=== PATIENT | female | born 1960 | race Two or more races ===

== ENCOUNTER → 2017-07-20 | Outpatient (CLI) | payer MEDICAID ==
--- NOTE | 2017-07-20 08:27 | WOMENS IMAGING REPORT ---
EXAM DESCRIPTION: BILAT SCREENING MAMMO W/CAD COMPLETED DATE/TIME: 07/20/2017 7:40 am REASON FOR STUDY: SCREENING MAMMO Z12.31 ENCNTR SCREEN MAMMOGRAM FOR MALIGNANT NEOPLASM OF TERRANCE COMPARISON: None. TECHNIQUE: Standard craniocaudal and mediolateral oblique views of each breast recorded using digita l acquisition. LIMITATIONS: None. FINDINGS: No masses, calcifications or architectural distortion. No areas of suspicion. Read with the assistance of CAD. .[facility] - R2 Cenova Version 1.3 .[facility] - R2 Cenova Version 1.3 .[facility] - R2 Cenova Version 2.4 .[facility] - R2 Cenova Version 2.4 .[facility] - R2 [employer]chand[employer] Version 9.2 IMPRESSION: NORMAL MAMMOGRAM. BIRADS 1. BREAST DENSITY: b. There are scattered areas of fibroglandular density. BIRAD: 1 NEGATIVE RECOMMENDATION: ROUTINE SCREENING COMMENT: The patient has been notified of the results by letter per SA requirements. Additional no tification policies are in place for contacting patient with suspicious or incomplete findings. Quality ID #[id number]: The [employer] recommends an annual screening mammogram for women aged 40 years or over. This facility utilizes a reminder system to ensure that all patients receive reminder letters, and/or direct phone calls for appointments. This includes reminders for routine scr eening mammograms, diagnostic mammograms, or other Breast Imaging Interventions when appropriate. Th is patient will be placed in the appropriate reminder system. The [employer] (ACR) has developed recommendations for screening MRI of the breast s in certain patient populations, to be used in conjunction with mammography. Breast MRI surveillanc e may be appropriate for women with more than 20% lifetime risk of developing breast cancer as deter mined by genetic testing, significant family history of the disease, or history of mantle radiation f or Hodgkins Disease. ACR Practice Guidelines 2008. TECHNICAL DOCUMENTATION: FINDING NUMBER: (1) ASSESSMENT: (1) JOB ID: [id number] [employer]- All Rights Reserved
== END ==
LOC: WI 07:20
PROVIDERS: ATTEND Internal Medicine
DX: Z12.31 Encounter for screening mammogram for malignant neoplasm of breast (principal)
CPT/HCPCS: 77067; G0202

== ENCOUNTER 2018-04-14 17:17 | Inpatient (IN) | payer MEDICAID ==
--- NOTE | 2018-04-14 17:37 | ER Document Report ---
ED Medical Screen (RME) - General Chief Complaint: Skin Sore(s) Stated Complaint: SKIN SORE Time Seen by Provider: 04/14/18 17:24 Mode of Arrival: Ambulatory Information source: Patient Notes: 57 yr old female hx of MRSA presents with complaints of fever that started yesterday, pain and drainage that started today in the inguinal region I have greeted and performed a rapid initial assessment of this patient. A comprehensive ED assessment and evaluation of the patient, analysis of test results and completion of the medical decision making process will be conducted by additional ED providers. PHYSICAL EXAMINATION: GENERAL: Well-appearing, well-nourished and in no acute distress. HEAD: Atraumatic, normocephalic. EYES: Pupils equal round extraocular movements intact, conjunctiva are normal. ENT: Nares patent NECK: Normal range of motion LUNGS: No respiratory distress Musculoskeletal: Normal range of motion NEUROLOGICAL: Normal speech, normal gait. PSYCH: Normal mood, normal affect. SKIN: right inguinal erythema, drainage with blood noted TRAVEL OUTSIDE OF THE [place] IN LAST 30 DAYS: No - Related Data Allergies/Adverse Reactions: No Known Allergies Allergy (Verified 04/14/18 17:19) Past Medical History - Social History Chew tobacco use (# tins/day): No Frequency of alcohol use: Occasional Drug Abuse: None - Past Medical History Cardiac Medical History: Reports: Hx Hypertension Renal/ Medical History: Denies: Hx Peritoneal Dialysis Past Surgical History: Reports: Hx Hysterectomy Physical Exam - Vital signs Vitals: Temp Pulse Resp BP Pulse Ox 99.2 F 102 H 18 134/85 H 96 04/14/18 17:22 04/14/18 17:22 04/14/18 17:22 04/14/18 17:22 04/14/18 17:22 Course - Vital Signs Vital signs: Temp Pulse Resp BP Pulse Ox 99.2 F 102 H 18 134/85 H 96 04/14/18 17:22 04/14/18 17:22 04/14/18 17:22 04/14/18 17:22 04/14/18 17:22 Doctor's Discharge - Discharge Referrals: MERRY GORDON MD [Primary Care Provider] - Follow up as needed
[2018-04-14 18:02] LABS: ABSOLUTE BASOPHILS # (AUTO) 0.1 10^3/uL (0.0-0.2); ABSOLUTE EOSINOPHILS # (AUTO) 0.1 10^3/uL (0.0-0.6); ABSOLUTE LYMPHOCYTES (AUTO) 2.1 10^3/uL (0.5-4.7); ABSOLUTE MONOCYTES (AUTO) 1.1 10^3/uL (0.1-1.4); BASOPHILS % (AUTO) 0.7 % (0-2); EOSINOPHILS % (AUTO) 0.4 % (0-6); HEMATOCRIT 42.7 % (36.0-47.0); HEMOGLOBIN 14.3 g/dL (12.0-15.5); LYMPHOCYTES % (AUTO) 11.5 % (13-45); MEAN CORPUSCULAR HEMOGLOBIN 31.1 pg (27.0-33.4); MEAN CORPUSCULAR HGB CONC 33.5 g/dL (32.0-36.0); MEAN CORPUSCULAR VOLUME 93 fl (80-97); PLATELET COUNT 264 10^3/uL (150-450); RED CELL DISTRIBUTION WIDTH 13.7 % (11.5-14.0); SEGMENTED NEUTROPHILS % (AUTO) 81.4 % (42-78); TOTAL CELLS COUNTED % (AUTO) 100 %; WHITE BLOOD COUNT 18.5 10^3/uL (4.0-10.5)
[2018-04-14 18:22] LABS: ALANINE AMINOTRANSFERASE 45 U/L (9-52); ALBUMIN 3.4 g/dL (3.5-5.0); ALKALINE PHOSPHATASE 83 U/L (38-126); ANION GAP 9 (5-19); ASPARTATE AMINO TRANSFERASE 26 U/L (14-36); BILIRUBIN,DIRECT 0.3 mg/dL (0.0-0.4); BILIRUBIN,TOTAL 0.6 mg/dL (0.2-1.3); BLOOD UREA NITROGEN 18 mg/dL (7-20); CALCIUM 8.6 mg/dL (8.4-10.2); CARBON DIOXIDE 24 mmol/L (22-30); CHLORIDE 105 mmol/L (98-107); GLUCOSE 100 mg/dL (75-110); SODIUM 138.4 mmol/L (137-145); TOTAL PROTEIN 5.9 g/dL (6.3-8.2)
[2018-04-14] MEDS ORDERED: CEFTRIAXONE INJ 1000 MG VIAL IV ONE (19:44)
[2018-04-14] MEDS ORDERED: VANCOMYCIN HCL INJ 1000 MG VIAL IV ONE (19:44)
--- NOTE | 2018-04-14 19:46 | ER Document Report ---
ED General - General Chief Complaint: Skin Sore(s) Stated Complaint: SKIN SORE Time Seen by Provider: 04/14/18 17:24 Mode of Arrival: Ambulatory Notes: Patient is a 57 year old female with a past medical history of hypertension and recurrent MRSA infections who presents with 24 hours of a rapidly progressing area of erythema, induration and pain over her right lower abdomen and pannus region extending down onto her right hip. Patient states that the area started several days ago is what appeared to be an infected hair follicle on her right lower pannus region and became progressively worse over the last 24 hours. She notes that she has had some purulent drainage from the original area of possible hair follicle infection. She reports a fever at home up to 103F yesterday but no fever today. She also notes that she has body aches, chills and fatigue since onset of the rash. She had a similar event in the past that was treated as an outpatient with oral antibiotics although she is clear to state that she never developed a fever at that time that the area of erythema was much smaller. She has not seen her general doctor regarding today's concerns. The pain to the areas described as a burning, stinging, constant pain. Touching the area or moving worsens the pain. Nothing improves the pain. TRAVEL OUTSIDE OF THE [place] IN LAST 30 DAYS: No - Related Data Allergies/Adverse Reactions: No Known Allergies Allergy (Verified 04/14/18 17:19) Past Medical History - General Information source: Patient - Social History Smoking Status: Current Every Day Smoker Chew tobacco use (# tins/day): No Frequency of alcohol use: Occasional Drug Abuse: None Lives with: Spouse/Significant other Family History: Reviewed & Not Pertinent Patient has suicidal ideation: No Patient has homicidal ideation: No - Past Medical History Cardiac Medical History: Reports: Hx Hypertension Renal/ Medical History: Denies: Hx Peritoneal Dialysis Past Surgical History: Reports: Hx Hysterectomy Review of Systems - Review of Systems Notes: Constitutional: Positive for fever. HENT: Negative for sore throat. Eyes: Negative for visual changes. Cardiovascular: Negative for chest pain. Respiratory: Negative for shortness of breath. Gastrointestinal: Negative for abdominal pain, vomiting or diarrhea. Genitourinary: Negative for dysuria. Musculoskeletal: Negative for back pain. Skin: Positive for rash. Neurological: Negative for headaches, weakness or numbness. 10 point ROS negative except as marked above and in HPI. Physical Exam - Vital signs Vitals: Temp Pulse Resp BP Pulse Ox 99.2 F 102 H 18 134/85 H 96 04/14/18 17:22 04/14/18 17:22 04/14/18 17:22 04/14/18 17:22 04/14/18 17:22 Interpretation: Tachycardic Notes: PHYSICAL EXAMINATION: GENERAL: Well-appearing, well-nourished and in no acute distress. HEAD: Atraumatic, normocephalic. EYES: Pupils equal round and reactive to light, extraocular movements intact, sclera anicteric, conjunctiva are normal. ENT: nares patent, oropharynx clear without exudates. Moderately dry mucous membranes. NECK: Normal range of motion, supple without lymphadenopathy LUNGS: Breath sounds clear to auscultation bilaterally and equal. No wheezes rales or rhonchi. HEART: Regular rate and rhythm without murmurs ABDOMEN: Soft, nontender, normoactive bowel sounds. No guarding, no rebound. No masses appreciated. EXTREMITIES: Normal range of motion, no pitting or edema. No cyanosis. NEUROLOGICAL: No focal neurological deficits. Moves all extremities spontaneously and on command. PSYCH: Normal mood, normal affect. SKIN: Warm, Dry, normal turgor, there is an extensive area of erythema extending from the right pannus region toward the right hip and down to the more proximal region of the right thigh. There is a small amount of purulent drainage from a punctate lesion in the central area of the erythema without any significant induration or fluctuance to the area. Course - Re-evaluation Re-evalutation: 04/14/18 19:44 Patient presents with findings consistent with sepsis she had a recorded fever at home up to 1.3F, arrives tachycardic and has a notable white count 18.8. She does have a small pustular, indurated area on the lateral inferior aspect of her pannus on the right which has been incised and drained with approximate 5 cc of purulent drainage expressed. More concern only however is that there is an extensive cellulitis over lying her right sided inferior pannus going over the side of her hip and down onto her right leg. This in conjunction with her vitals at home as well as her marked leukocytosis warrants hospitalization and IV antibiotics. Will discuss with the hospitalist for admission. - Vital Signs Vital signs: Temp Pulse Resp BP Pulse Ox 98.9 F 84 17 126/77 H 97 04/14/18 22:17 04/14/18 22:17 04/14/18 22:17 04/14/18 22:17 04/14/18 22:17 - Laboratory Result Diagrams: 04/14/18 17:51 04/14/18 17:51 Laboratory results interpreted by me: 04/14/18 04/14/18 17:51 17:51 WBC 18.5 H Seg Neutrophils % 81.4 H Lymphocytes % 11.5 L Absolute Neutrophils 15.0 H Total Protein 5.9 L Albumin 3.4 L Procedures - Incision and Drainage Abdomen Type: Simple Anesthetic type: 1% Lidocaine mL's of anesthetic: 2 Blade size: 11 I&D procedure: Betadine prep applied Incision Method: Incision made by scalpel Amount/type of drainage: 3 cc purulent drainage Discharge - Discharge Clinical Impression: Abdominal wall cellulitis Sepsis Qualifiers: Sepsis type: sepsis due to unspecified organism Qualified Code(s): A41.9 - Sepsis, unspecified organism Condition: Fair Disposition: ADMITTED INPATIENT Admitting Provider: Hospitalist Unit Admitted: Medical Floor
[2018-04-14] MEDS ORDERED: KETOROLAC TROMETHAMINE INJ/PF 30 MG/1 ML SDV IV ONE (20:00)
[2018-04-14] MEDS ORDERED: NICOTINE 21 MG/24 HR PATCH.TD24 TD ONE (20:05)
[2018-04-14] MEDS ORDERED: ACETAMINOPHEN 325 MG TABLET PO PRN (20:09)
[2018-04-14] MEDS ORDERED: MAG HYDROX/AL HYDROX/SIMETH SUSP 30 ML UDCUP PO PRN (20:09)
[2018-04-14] MEDS ORDERED: VANCOMYCIN HCL 0 MG in DEXTROSE 5%-WATER 250 ML IV NR (20:15)
[2018-04-14] MEDS: HEPARIN SOD (PORCINE) 5,000 UNIT/ML 1 ML SYRINGE SUBCUT SCH (22:35)
--- NOTE | 2018-04-15 04:30 | PDOC H&P ---
History of Present Illness Admission Date/PCP: 04/14/18 20:09 MERRY GORDON MD Patient complains of: Groin pain History of Present Illness: CARLOS VIDAL is a 57 year old female with a past medical history of hypertension, obesity, tobacco and MRSA cellulitis. Presenting with 24 hours of erythema, induration and pain over her right lower abdomen and pannus extending to the right thigh. She admits fever of 103.0, chills denies nausea and vomiting. In the emergency room she is found to have cellulitis of the pannus and a 0.5 cm abscess involving a hair follicle requiring I&D. She denies recent antibiotic use and otherwise feels well. Past Medical History Cardiac Medical History: Reports: Hypertension Past Surgical History Past Surgical History: Reports: Hysterectomy Social History Information Source: Patient, [facility] Records Lives with: Spouse/Significant other Smoking Status: Current Every Day Smoker Frequency of Alcohol Use: Occasional Hx Recreational Drug Use: No Drugs: None Hx Prescription Drug Abuse: No - Advance Directive Resuscitation Status: Full Code Family History Family History: Hypertension Parental Family History Reviewed: Yes Children Family History Reviewed: Yes Sibling(s) Family History Reviewed.: Yes Medication/Allergy Allergies/Adverse Reactions: No Known Allergies Allergy (Verified 04/14/18 17:19) Review of Systems Constitutional: ABSENT: chills, fever(s), headache(s), weight gain, weight loss Eyes: ABSENT: visual disturbances Ears: ABSENT: hearing changes Cardiovascular: ABSENT: chest pain, dyspnea on exertion, edema, orthropnea, palpitations Respiratory: ABSENT: cough, hemoptysis Gastrointestinal: ABSENT: abdominal pain, constipation, diarrhea, hematemesis, hematochezia, nausea, vomiting Genitourinary: ABSENT: dysuria, hematuria Musculoskeletal: ABSENT: joint swelling Integumentary: ABSENT: rash, wounds Neurological: ABSENT: abnormal gait, abnormal speech, confusion, dizziness, focal weakness, syncope Psychiatric: ABSENT: anxiety, depression, homidical ideation, suicidal ideation Endocrine: ABSENT: cold intolerance, heat intolerance, polydipsia, polyuria Hematologic/Lymphatic: ABSENT: easy bleeding, easy bruising Physical Exam Vital Signs: Temp Pulse Resp BP Pulse Ox 98.9 F 84 17 126/77 H 97 04/14/18 22:17 04/14/18 22:17 04/14/18 22:17 04/14/18 22:17 04/14/18 22:17 Intake & Output 04/13/18 04/14/18 04/15/18 11:59 11:59 11:59 Weight 91.7 kg General appearance: PRESENT: cooperative, mild distress, obese. ABSENT: disheveled Head exam: PRESENT: atraumatic Eye exam: PRESENT: conjunctiva pink, EOMI, PERRLA. ABSENT: scleral icterus Ear exam: PRESENT: normal external ear exam Mouth exam: PRESENT: moist, tongue midline Neck exam: ABSENT: carotid bruit, JVD, lymphadenopathy, thyromegaly Respiratory exam: PRESENT: clear to auscultation ruddy. ABSENT: rales, rhonchi, wheezes Cardiovascular exam: PRESENT: RRR. ABSENT: diastolic murmur, rubs, systolic murmur Pulses: PRESENT: normal dorsalis pedis pul Vascular exam: PRESENT: normal capillary refill GI/Abdominal exam: PRESENT: tenderness Torso Front/Back Image: 1 - Induration erythema and pain Rectal exam: PRESENT: deferred Extremities exam: PRESENT: full ROM. ABSENT: calf tenderness, clubbing, pedal edema Neurological exam: PRESENT: alert, awake, oriented to person, oriented to place , oriented to time, oriented to situation, CN II-XII grossly intact. ABSENT: motor sensory deficit Psychiatric exam: PRESENT: appropriate affect, normal mood. ABSENT: homicidal ideation, suicidal ideation Skin exam: PRESENT: dry, erythema - Extensive erythema beyond borders of abscess outlined., intact, warm. ABSENT: cyanosis, rash Assessment & Plan - Diagnosis (1) MRSA cellulitis Is this a current diagnosis for this admission?: Yes Plan: Likely given history, empiric vancomycin initiated. Follow-up blood and wound culture, CBC (2) Sepsis Qualifiers: Sepsis type: sepsis due to unspecified organism Qualified Code(s): A41.9 - Sepsis, unspecified organism Is this a current diagnosis for this admission?: Yes Plan: Secondary to #1, IV fluid challenge, consideration of pressors. Vancomycin and Rocephin initiated (3) Abdominal wall cellulitis Is this a current diagnosis for this admission?: Yes Plan: Impressive and extensive erythema beyond the site of abscess. Reevaluate in 8 hours and consideration of surgical consult. Follow-up CBC blood and wound culture (4) Hypertension Is this a current diagnosis for this admission?: Yes Plan: Hold outpatient regiment pending resolution of sepsis. (5) Tobacco abuse Is this a current diagnosis for this admission?: Yes Plan: Tobacco Dependence patient received tobacco cessation counseling and offered nicotine replacement options - Time Time Spent: 50 to 70 Minutes - Inpatient Certification Medical Necessity: Need Close Monitoring Due to Risk of Patient Decompensation
[2018-04-15 05:34] LABS: ABSOLUTE BASOPHILS # (AUTO) 0.1 10^3/uL (0.0-0.2); ABSOLUTE EOSINOPHILS # (AUTO) 0.1 10^3/uL (0.0-0.6); ABSOLUTE LYMPHOCYTES (AUTO) 1.9 10^3/uL (0.5-4.7); ABSOLUTE MONOCYTES (AUTO) 0.9 10^3/uL (0.1-1.4); ABSOLUTE NEUT (AUTO) 9.8 10^3/uL (1.7-8.2); EOSINOPHILS % (AUTO) 0.6 % (0-6); HEMOGLOBIN 12.8 g/dL (12.0-15.5); MEAN CORPUSCULAR HEMOGLOBIN 30.8 pg (27.0-33.4); MEAN CORPUSCULAR HGB CONC 33.6 g/dL (32.0-36.0); MEAN CORPUSCULAR VOLUME 92 fl (80-97); PLATELET COUNT 219 10^3/uL (150-450); RED BLOOD COUNT 4.14 10^6/uL (3.72-5.28); RED CELL DISTRIBUTION WIDTH 13.4 % (11.5-14.0); SEGMENTED NEUTROPHILS % (AUTO) 76.4 % (42-78); TOTAL CELLS COUNTED % (AUTO) 100 %; WHITE BLOOD COUNT 12.8 10^3/uL (4.0-10.5)
[2018-04-15 06:17] LABS: ANION GAP 8 (5-19); BLOOD UREA NITROGEN 17 mg/dL (7-20); CALCIUM 8.2 mg/dL (8.4-10.2); CARBON DIOXIDE 24 mmol/L (22-30); CHLORIDE 110 mmol/L (98-107); GLUCOSE 110 mg/dL (75-110); POTASSIUM 3.9 mmol/L (3.6-5.0); SODIUM 141.9 mmol/L (137-145)
[2018-04-15] MEDS: HEPARIN SOD (PORCINE) 5,000 UNIT/ML 1 ML SYRINGE SUBCUT SCH ×3 (06:26→21:06)
[2018-04-15] MEDS: DOCUSATE SODIUM 100 MG CAPSULE PO SCH ×2 (11:13→17:19)
[2018-04-15] MEDS: VANCOMYCIN HCL 1,500 MG in DEXTROSE 5%-WATER 250 ML IV SCH ×2 (11:13→21:07)
[2018-04-15] MEDS: HYDROCODONE/ACETAMINOPHEN 5-325 MG TABLET PO PRN ×2 (14:52→21:06)
[2018-04-15] MEDS: CEFTRIAXONE SODIUM 1,000 MG in DEXTROSE 5%-WATER 50 ML IV SCH (17:34)
--- NOTE | 2018-04-15 17:46 | PDOC PROGRESS REPORT ---
Subjective Progress Note for:: 04/15/18 Subjective:: The patient is a 57-year-old female with a past medical history significant for hypertension, obesity, tobacco, and MRSA cellulitis. She was admitted on for abscess and cellulitis to the right pannus with leukocytosis. Patient is seen on afternoon rounds. She is found sitting upright in bed on room air. She reports that her pain has improved somewhat since having the incision and drainage done in the emergency department last night. Her only questions are with regard to the anticipated length of stay. She denies fever, chills, body aches, chest pain, dyspnea, abdominal pain, nausea, vomiting, diarrhea. She does endorse continued right lower and suprapubic superficial tenderness. Reason For Visit: CELLULITIS, SEPSIS Physical Exam Vital Signs: Temp Pulse Resp BP Pulse Ox 99.0 F 78 20 131/77 H 97 04/15/18 11:57 04/15/18 11:57 04/15/18 11:57 04/15/18 11:57 04/15/18 11:57 Intake & Output 04/14/18 04/15/18 04/16/18 06:59 06:59 06:59 Intake Total 2570 500 Output Total 400 Balance 2170 500 Weight 91.7 kg General appearance: PRESENT: no acute distress, cooperative, obese, well- developed, well-nourished Head exam: PRESENT: atraumatic, normocephalic Eye exam: PRESENT: conjunctiva pink, EOMI, PERRLA. ABSENT: scleral icterus Ear exam: PRESENT: normal external ear exam Mouth exam: PRESENT: moist, tongue midline Neck exam: ABSENT: carotid bruit, JVD, lymphadenopathy, thyromegaly Respiratory exam: PRESENT: clear to auscultation ruddy. ABSENT: rales, rhonchi, wheezes Cardiovascular exam: PRESENT: RRR. ABSENT: diastolic murmur, rubs, systolic murmur Pulses: PRESENT: normal dorsalis pedis pul Vascular exam: PRESENT: normal capillary refill GI/Abdominal exam: PRESENT: normal bowel sounds, soft. ABSENT: distended, guarding, mass, organolmegaly, rebound, tenderness Rectal exam: PRESENT: deferred Extremities exam: PRESENT: full ROM. ABSENT: calf tenderness, clubbing, pedal edema Neurological exam: PRESENT: alert, awake, oriented to person, oriented to place , oriented to time, oriented to situation, CN II-XII grossly intact. ABSENT: motor sensory deficit Psychiatric exam: PRESENT: appropriate affect, normal mood. ABSENT: homicidal ideation, suicidal ideation Skin exam: PRESENT: dry, erythema, warm, other - Erythema has receded from borders drawn with skin markers; hard, painful, induration noted to the right inguinal fold. I&D site draining serous fluid.. ABSENT: cyanosis, intact, rash Results Laboratory Results: 04/15/18 05:00 04/15/18 05:00 04/15/18 04/15/18 05:00 05:00 WBC 12.8 H RBC 4.14 Hgb 12.8 Hct 38.0 MCV 92 MCH 30.8 MCHC 33.6 RDW 13.4 Plt Count 219 Seg Neutrophils % 76.4 Lymphocytes % 15.0 Monocytes % 7.0 Eosinophils % 0.6 Basophils % 1.0 Absolute Neutrophils 9.8 H Absolute Lymphocytes 1.9 Absolute Monocytes 0.9 Absolute Eosinophils 0.1 Absolute Basophils 0.1 Sodium 141.9 Potassium 3.9 Chloride 110 H Carbon Dioxide 24 Anion Gap 8 BUN 17 Creatinine 0.68 Est GFR ( Amer) > 60 Est GFR (Non-Af Amer) > 60 Glucose 110 Calcium 8.2 L Assessment & Plan - Diagnosis (1) Abdominal wall cellulitis Is this a current diagnosis for this admission?: Yes Plan: The patient presented with right lower abdominal cellulitis extending to the medial suprapubic area and right medial thigh. Incision and drainage was completed while in the emergency department. Leukocytosis on admission >18k, down to 12.8 this morning. A1c 5.4% Blood cultures are pending. Unfortunately, wound culture was not obtained at time of I&D; did collect midday. She is empirically placed on vancomycin and Rocephin secondary to history of MRSA abscesses and cellulitis. Pain is managed with as needed Tylenol and [place]. Patient has demonstrated significant improvement in intensity and area of erythema, however, does continue to have induration. Will reassess in the morning and consider need for surgical evaluation. (2) Hypertension Is this a current diagnosis for this admission?: Yes Plan: Have resumed the patient's home medication; clonidine. (3) Tobacco abuse Is this a current diagnosis for this admission?: Yes Plan: Smoking cessation is encouraged; nicotine replacement therapies are provided. (4) Sepsis Qualifiers: Sepsis type: sepsis due to unspecified organism Qualified Code(s): A41.9 - Sepsis, unspecified organism Is this a current diagnosis for this admission?: No Plan: Ruled out; although the patient reported a subjective fever of 103, this occurred 1-2 days prior to her admission. She was noted on admission to have leukocytosis with a WBC of 18,000. Lactate was not obtained. However, her vital signs were stable she did not require fluids or pressor support to maintain blood pressure. She has remained afebrile since admission. She does not appear to be toxically ill. - Time Time Spent with patient: 15-24 minutes Medications reviewed and adjusted accordingly: Yes Anticipated discharge: Home Within: within 48 hours - Inpatient Certification Based on my medical assessment, after consideration of the patient's comorbidities, presenting symptoms, or acuity I expect that the services needed warrant INPATIENT care.: Yes I certify that my determination is in accordance with my understanding of Medicare's requirements for reasonable and necessary INPATIENT services [42 CFR 412.3e].: Yes Medical Necessity: Need for IV Antibiotics
[2018-04-15] MEDS ORDERED: CEFTRIAXONE 1 GM/D5W RTU 1 GM/50 ML RTUPB IV SCH (18:00)
[2018-04-15] MEDS ORDERED: NICOTINE 21 MG/24 HR PATCH.TD24 TD ONE (19:30)
[2018-04-15] MEDS: CLONIDINE HCL 0.1 MG TABLET PO SCH (21:07)
[2018-04-16] MEDS: HYDROCODONE/ACETAMINOPHEN 5-325 MG TABLET PO PRN ×3 (03:14→21:12)
[2018-04-16] MEDS: KETOROLAC TROMETHAMINE INJ/PF 30 MG/1 ML SDV IV PRN ×2 (06:46→13:42)
[2018-04-16] MEDS: HEPARIN SOD (PORCINE) 5,000 UNIT/ML 1 ML SYRINGE SUBCUT SCH ×3 (06:46→21:12)
[2018-04-16] MEDS: CLONIDINE HCL 0.1 MG TABLET PO SCH ×3 (06:46→21:12)
[2018-04-16] MEDS: VANCOMYCIN HCL 1,500 MG in DEXTROSE 5%-WATER 250 ML IV SCH (09:15)
[2018-04-16] MEDS: DOCUSATE SODIUM 100 MG CAPSULE PO SCH ×2 (09:16→17:13)
[2018-04-16] MEDS: NICOTINE 21 MG/24 HR PATCH.TD24 TD SCH (09:16)
[2018-04-16 10:10] LABS: VANCOMYCIN,TROUGH 8.9 ug/mL (5.0-20.0)
[2018-04-16] MEDS ORDERED: DEXTROSE 40% GEL 15 GM TUBE PO PRN ×2 (14:41)
[2018-04-16] MEDS ORDERED: GLUCAGON,HUMAN RECOMB 1 MG INJ SUBCUT PRN ×2 (14:41→17:10)
[2018-04-16] MEDS ORDERED: DEXTROSE 50%-WATER 25 GM/50 ML DISP.SYRIN IV PRN ×3 (14:41→17:10)
--- NOTE | 2018-04-16 16:06 | PDOC CONSULTATION ---
Consultation Consult Date: 04/16/18 Consult reason:: Abdominal wall sepsis History of Present Illness Admission Date/PCP: 04/14/18 20:09 MERRY GORDON MD History of Present Illness: CARLOS VIDAL is a 57 year old female Seen in the emergency department several days ago with cellulitis the intra- abdominal wall. Patient underwent I&D of the right lower quadrant locally in the emergency department. She was subsequently admitted to the internal medicine service for intravenous antibiotics. Over the past 2 days the patient has increased drainage from the wound with purulence. Surgery was consulted for more aggressive intervention. Past Medical History Past Medical History: Smoking, obesity, hypertension, Cardiac Medical History: Reports: Hypertension Past Surgical History Past Surgical History: History of drainage procedure on her head and neck Past Surgical History: Reports: Hysterectomy Social History Lives with: Spouse/Significant other Smoking Status: Current Every Day Smoker Frequency of Alcohol Use: Occasional Hx Recreational Drug Use: No Drugs: None Hx Prescription Drug Abuse: No - Advance Directive Resuscitation Status: Full Code Family History Family History: Hypertension Parental Family History Reviewed: Yes Children Family History Reviewed: Yes Sibling(s) Family History Reviewed.: Yes Medication/Allergy Home Medications: Clonidine HCl [Catapres 0.1 mg Tablet] 0.1 mg PO Q8 04/15/18 Meloxicam [Mobic] 7.5 mg PO Q12 04/15/18 Allergies/Adverse Reactions: No Known Allergies Allergy (Verified 04/14/18 17:19) Review of Systems Eyes: ABSENT: visual disturbances Ears: ABSENT: hearing changes Cardiovascular: PRESENT: as per HPI Physical Exam Vital Signs: Temp Pulse Resp BP Pulse Ox 98.1 F 68 16 121/69 100 04/16/18 11:11 04/16/18 11:11 04/16/18 11:11 04/16/18 11:11 04/16/18 11:11 Intake & Output 04/15/18 04/16/18 04/17/18 06:59 06:59 06:59 Intake Total 2570 2150 Output Total 400 1900 Balance 2170 250 Weight 91.7 kg General appearance: PRESENT: no acute distress GI/Abdominal exam: PRESENT: other - Dominant wall at site of small I&D hole. There is active foul-smelling drainage emanating from the wound. Results Laboratory Results: 04/15/18 05:00 04/15/18 05:00 Assessment & Plan - Diagnosis (1) Abdominal wall cellulitis Is this a current diagnosis for this admission?: Yes Plan: Sustained active purulent discharge from intra-abdominal wall status post I&D, intravenous antibiotics; inadequate source control of septic focus Conditions: 1. Patient was seen at 230 just had lunch at 130. Therefore she cannot undergo surgery this afternoon as this is not a aide emergency. 2. We will keep the patient n.p.o., and plan to perform abdominal wall debridement, by Dr. Greco, 7:30 AM, April 17. Above was explained to patient. I believe she understands and agrees to proceed.
[2018-04-16] MEDS: CEFTRIAXONE SODIUM 1,000 MG in DEXTROSE 5%-WATER 50 ML IV SCH (17:13)
--- NOTE | 2018-04-16 17:46 | PDOC PROGRESS REPORT ---
Subjective Progress Note for:: 04/16/18 Reason For Visit: CELLULITIS, SEPSIS Physical Exam Vital Signs: Temp Pulse Resp BP Pulse Ox 98.1 F 68 16 121/69 100 04/16/18 11:11 04/16/18 11:11 04/16/18 11:11 04/16/18 11:11 04/16/18 11:11 Intake & Output 04/15/18 04/16/18 04/17/18 06:59 06:59 06:59 Intake Total 2570 2150 Output Total 400 1900 Balance 2170 250 Weight 91.7 kg Results Laboratory Results: 04/15/18 05:00 04/15/18 05:00 Assessment & Plan - Diagnosis (1) Abdominal wall cellulitis Is this a current diagnosis for this admission?: Yes Plan: The patient presented with right lower abdominal cellulitis extending to the medial suprapubic area and right medial thigh. Incision and drainage was completed while in the emergency department. Leukocytosis on admission >18k, down to 12.8 this morning. A1c 5.4% Blood cultures are pending. Unfortunately, wound culture was not obtained at time of I&D; did collect yesterday She is empirically placed on vancomycin and Rocephin secondary to history of MRSA abscesses and cellulitis. Pain is managed with as needed Tylenol and [place]. Patient has demonstrated significant improvement in intensity and area of erythema, however, does continue to have induration. Continues to drain purulent brown drainage. Surgery consulted, Dr. Toscano plans to take patient to or tomorrow for repeat I&D, possible washout. (2) Hypertension Is this a current diagnosis for this admission?: Yes Plan: Continue home dose clonidine (3) Tobacco abuse Is this a current diagnosis for this admission?: Yes Plan: Smoking cessation is encouraged; nicotine replacement therapies are provided. - Time Time Spent with patient: 15-24 minutes Medications reviewed and adjusted accordingly: Yes Anticipated discharge: Home - Inpatient Certification Based on my medical assessment, after consideration of the patient's comorbidities, presenting symptoms, or acuity I expect that the services needed warrant INPATIENT care.: Yes I certify that my determination is in accordance with my understanding of Medicare's requirements for reasonable and necessary INPATIENT services [42 CFR 412.3e].: Yes Medical Necessity: Need for IV Antibiotics, Need for Surgery - Plan Summary Plan Summary: Following surgery, plan to discharge home with home health/wound care
[2018-04-16] MEDS: VANCOMYCIN HCL 1,000 MG in DEXTROSE 5%-WATER 250 ML IV SCH (18:21)
[2018-04-17] MEDS: VANCOMYCIN HCL 1,000 MG in DEXTROSE 5%-WATER 250 ML IV SCH ×3 (02:00→17:33)
[2018-04-17] MEDS: HEPARIN SOD (PORCINE) 5,000 UNIT/ML 1 ML SYRINGE SUBCUT SCH ×3 (05:10→21:45)
[2018-04-17] MEDS: CLONIDINE HCL 0.1 MG TABLET PO SCH ×3 (05:11→21:41)
[2018-04-17] MEDS ORDERED: LIDOCAINE 2% INJ-PF (20 MG/ML) 10 ML AMPUL ONE (06:39)
[2018-04-17] MEDS ORDERED: PROPOFOL INJ 200 MG/20 ML VIAL IV ONE (06:40)
[2018-04-17] MEDS ORDERED: ACETAMINOPHEN 1,000 MG/100 ML RTUPB IV ONE (06:40)
[2018-04-17] MEDS ORDERED: MIDAZOLAM 2 MG/2 ML INJ ONE (06:40)
[2018-04-17] MEDS ORDERED: DEXAMETHASONE SOD PHOSPHATE INJ 4 MG/1 ML VIAL ONE (06:40)
[2018-04-17] MEDS ORDERED: FENTANYL CITRATE INJ/PF 100 MCG/2 ML AMPUL ONE (06:40)
[2018-04-17] MEDS ORDERED: PROMETHAZINE HCL INJ 25 MG/1 ML VIAL IV PRN ×2 (08:06)
[2018-04-17] MEDS ORDERED: DIPHENHYDRAMINE HCL 50 MG/ML VIAL IV PRN (08:06)
[2018-04-17] MEDS ORDERED: MEPERIDINE HCL/PF INJ 25 MG/1 ML DISP.SYRIN IV PRN (08:06)
[2018-04-17] MEDS ORDERED: ONDANSETRON HCL INJ/PF 4 MG/2 ML SDV IV PRN ×2 (08:06→08:23)
[2018-04-17] MEDS ORDERED: FENTANYL CITRATE INJ/PF 100 MCG/2 ML AMPUL IV PRN ×3 (08:06)
[2018-04-17] MEDS ORDERED: MORPHINE SULFATE 10 MG/ML INJ IV PRN (08:06)
[2018-04-17 08:48] LABS: ABSOLUTE BASOPHILS # (AUTO) 0.1 10^3/uL (0.0-0.2); ABSOLUTE EOSINOPHILS # (AUTO) 0.1 10^3/uL (0.0-0.6); ABSOLUTE LYMPHOCYTES (AUTO) 1.4 10^3/uL (0.5-4.7); ABSOLUTE MONOCYTES (AUTO) 0.4 10^3/uL (0.1-1.4); ABSOLUTE NEUT (AUTO) 5.1 10^3/uL (1.7-8.2); BASOPHILS % (AUTO) 0.9 % (0-2); EOSINOPHILS % (AUTO) 1.5 % (0-6); HEMATOCRIT 37.9 % (36.0-47.0); HEMOGLOBIN 12.5 g/dL (12.0-15.5); LYMPHOCYTES % (AUTO) 19.9 % (13-45); MEAN CORPUSCULAR HEMOGLOBIN 30.6 pg (27.0-33.4); MEAN CORPUSCULAR HGB CONC 33.1 g/dL (32.0-36.0); MEAN CORPUSCULAR VOLUME 92 fl (80-97); MONOCYTES % (AUTO) 6.3 % (3-13); PLATELET COUNT 277 10^3/uL (150-450); RED BLOOD COUNT 4.11 10^6/uL (3.72-5.28); RED CELL DISTRIBUTION WIDTH 13.5 % (11.5-14.0); SEGMENTED NEUTROPHILS % (AUTO) 71.4 % (42-78); TOTAL CELLS COUNTED % (AUTO) 100 %; WHITE BLOOD COUNT 7.1 10^3/uL (4.0-10.5)
[2018-04-17 09:01] LABS: INTERNATIONAL RATION (INR) 0.83; PROTHROMBIN TIME 11.9 SEC (11.4-15.4)
[2018-04-17 09:20] LABS: ALANINE AMINOTRANSFERASE 42 U/L (9-52); ALBUMIN 2.8 g/dL (3.5-5.0); ALKALINE PHOSPHATASE 76 U/L (38-126); AMYLASE 64 U/L (30-110); ANION GAP 9 (5-19); ASPARTATE AMINO TRANSFERASE 32 U/L (14-36); BILIRUBIN,DIRECT 0.2 mg/dL (0.0-0.4); BILIRUBIN,TOTAL 0.2 mg/dL (0.2-1.3); BLOOD UREA NITROGEN 15 mg/dL (7-20); CALCIUM 9.2 mg/dL (8.4-10.2); CARBON DIOXIDE 25 mmol/L (22-30); CHLORIDE 109 mmol/L (98-107); GLUCOSE 97 mg/dL (75-110); LIPASE 427.6 U/L (23-300); POTASSIUM 4.8 mmol/L (3.6-5.0); SODIUM 142.7 mmol/L (137-145); TOTAL PROTEIN 5.3 g/dL (6.3-8.2)
--- NOTE | 2018-04-17 09:40 | OPERATIVE REPORT E ---
Operative Report NAME: CARLOS VIDAL : 1960 AGE: 57Y DATE OF SURGERY: 04/17/2018 ROOM: 424 PREOPERATIVE DIAGNOSIS: Abscess of the right groin. POSTOPERATIVE DIAGNOSIS: Abscess of the right groin. PROCEDURE: Incision and drainage, debridement and placement of a wound VAC on a right groin abscess measuring 14 cm x 3 cm x 3 cm. SURGEON: SUE SAUNDERS M.D. ANESTHESIA: General. INDICATION: This is a 57-year-old female who developed an abscess on the right groin that was initially drained in the emergency room. Unfortunately, the patient continued to drain the groin site and therefore needed a more formal debridement. DESCRIPTION OF PROCEDURE: After adequate general anesthesia, the patient was placed in a supine position and the right groin prepped and draped in the usual sterile fashion. Appropriate timeout was then called. Next, the initial puncture site was then probed going medially and this incision was extended. Also, cavity noted laterally and the incision extended laterally with the total incision about 14 cm long. A small amount of abscess noted and cultures were obtained. Hemostasis along the subcu and dermis were then controlled with cautery. Next, the abscess cavity was subsequently pulse lavaged with about 2500 mL of saline. The wound looks relatively clean and wound VAC could be applied. A wound VAC was then applied to the abscess cavity site for better wound healing. The right groin is difficult to keep dry and she will have a better healing process with the wound VAC. The patient tolerated the procedure well. Needle, instrument, and sponge count were all correct. Estimated blood loss about 20 mL. Patient then brought to the recovery room in satisfactory condition. DICTATING PHYSICIAN: SUE SAUNDERS M.D. [id number] PHY#: [id number] ID: [id number] JOB#: [id number] ACCT: [id number] cc:SUE SAUNDERS M.D. >
[2018-04-17] MEDS: NORMAL SALINE 1000 ML 1,000 ML IV PRN ×2 (10:04→15:40)
[2018-04-17] MEDS: MORPHINE SULFATE 10 MG/ML INJ IV PRN ×4 (10:04→21:40)
[2018-04-17] MEDS: DOCUSATE SODIUM 100 MG CAPSULE PO SCH ×2 (12:42→17:34)
[2018-04-17] MEDS: KETOROLAC TROMETHAMINE INJ/PF 30 MG/1 ML SDV IV PRN ×2 (14:32→22:14)
[2018-04-17] MEDS: NICOTINE 21 MG/24 HR PATCH.TD24 TD SCH (14:33)
--- NOTE | 2018-04-17 17:29 | PDOC PROGRESS REPORT ---
Subjective Progress Note for:: 04/17/18 Subjective:: 57 y.o. F presented to [facility] with R groin abscess. Initially I&D in ER and admitted on IV antibiotics but site continued to drain pus. Surgery took patient to OR today for I&D and washout of the affected area. Wound vac in place over surgical site, minimal drainage. Patient seen postoperatively, she is A&O x 3 and able to answer questions without pause. She denies any complaints but endorses TTP to the surgical site. Patient remains afebrile and nontoxic appearing. Reason For Visit: CELLULITIS, SEPSIS Physical Exam Vital Signs: Temp Pulse Resp BP Pulse Ox 98.6 F 75 18 142/92 H 100 04/17/18 14:55 04/17/18 14:55 04/17/18 14:55 04/17/18 14:55 04/17/18 14:55 Intake & Output 04/16/18 04/17/18 04/18/18 06:59 06:59 06:59 Intake Total 2150 3064 4854 Output Total 1900 2000 4210 Balance 250 1064 644 General appearance: PRESENT: no acute distress, well-developed, well-nourished Head exam: PRESENT: atraumatic, normocephalic Eye exam: PRESENT: conjunctiva pink, EOMI, PERRLA. ABSENT: scleral icterus Ear exam: PRESENT: normal external ear exam Mouth exam: PRESENT: moist, tongue midline Neck exam: ABSENT: carotid bruit, JVD, lymphadenopathy, thyromegaly Respiratory exam: PRESENT: clear to auscultation ruddy. ABSENT: rales, rhonchi, wheezes Cardiovascular exam: PRESENT: RRR. ABSENT: diastolic murmur, rubs, systolic murmur Pulses: PRESENT: normal dorsalis pedis pul Vascular exam: PRESENT: normal capillary refill GI/Abdominal exam: PRESENT: normal bowel sounds, soft. ABSENT: distended, guarding, mass, organolmegaly, rebound, tenderness Rectal exam: PRESENT: deferred Extremities exam: PRESENT: full ROM. ABSENT: calf tenderness, clubbing, pedal edema Neurological exam: PRESENT: alert, awake, oriented to person, oriented to place , oriented to time, oriented to situation, CN II-XII grossly intact. ABSENT: motor sensory deficit Psychiatric exam: PRESENT: appropriate affect, normal mood. ABSENT: homicidal ideation, suicidal ideation Skin exam: PRESENT: dry, warm, other - surgical site c/d/i. +TTP. covered with wound vac. currently, no drainage Results Laboratory Results: 04/17/18 08:34 04/17/18 08:34 04/17/18 04/17/18 08:34 08:34 WBC 7.1 RBC 4.11 Hgb 12.5 Hct 37.9 MCV 92 MCH 30.6 MCHC 33.1 RDW 13.5 Plt Count 277 Seg Neutrophils % 71.4 Lymphocytes % 19.9 Monocytes % 6.3 Eosinophils % 1.5 Basophils % 0.9 Absolute Neutrophils 5.1 Absolute Lymphocytes 1.4 Absolute Monocytes 0.4 Absolute Eosinophils 0.1 Absolute Basophils 0.1 Sodium 142.7 Potassium 4.8 Chloride 109 H Carbon Dioxide 25 Anion Gap 9 BUN 15 Creatinine 0.66 Est GFR ( Amer) > 60 Est GFR (Non-Af Amer) > 60 Glucose 97 Calcium 9.2 Total Bilirubin 0.2 AST 32 ALT 42 Alkaline Phosphatase 76 Total Protein 5.3 L Albumin 2.8 L Amylase 64 Lipase 427.6 H Status: Imported from PACS Assessment & Plan - Diagnosis (1) Abdominal wall cellulitis Is this a current diagnosis for this admission?: Yes Plan: The patient presented with right lower abdominal cellulitis extending to the medial suprapubic area and right medial thigh. Incision and drainage was completed while in the emergency department. Leukocytosis on admission >18k, down to 7.1 this morning. A1c 5.4% Blood cultures are pending. Unfortunately, wound culture was not obtained at time of I&D; did collect 04/15 and in OR today. Awaiting results. She is empirically placed on vancomycin and Rocephin secondary to history of MRSA abscesses and cellulitis. Pain is managed with as needed Tylenol and [place]. Surgery performed I&D and washout today. Wound vac in place, minimal output. Surgical site TTP but otherwise no postop complications. (2) Hypertension Is this a current diagnosis for this admission?: Yes Plan: Continue home dose clonidine (3) Tobacco abuse Is this a current diagnosis for this admission?: Yes Plan: Smoking cessation is encouraged; nicotine replacement therapies are provided. - Time Time Spent with patient: 15-24 minutes Medications reviewed and adjusted accordingly: Yes Anticipated discharge: Home - Inpatient Certification Based on my medical assessment, after consideration of the patient's comorbidities, presenting symptoms, or acuity I expect that the services needed warrant INPATIENT care.: Yes I certify that my determination is in accordance with my understanding of Medicare's requirements for reasonable and necessary INPATIENT services [42 CFR 412.3e].: Yes Medical Necessity: Risk of Complication if Not Cared For in Hospital - Plan Summary Plan Summary: WILL KEEP INTPATIENT UNTIL MONDAY, AT THAT TIME SURGERY WILL CLOSE THE SURGICAL SITE. PATIENT MAY BE DISCHARGED HOME ON MONDAY.
[2018-04-17] MEDS: CEFTRIAXONE SODIUM 1,000 MG in DEXTROSE 5%-WATER 50 ML IV SCH (19:36)
[2018-04-17] MEDS ORDERED: NICOTINE 21 MG/24 HR PATCH.TD24 TD ONE (21:15)
[2018-04-18] MEDS: VANCOMYCIN HCL 1,000 MG in DEXTROSE 5%-WATER 250 ML IV SCH ×3 (01:46→18:24)
[2018-04-18] MEDS: MORPHINE SULFATE 10 MG/ML INJ IV PRN ×5 (01:46→23:12)
[2018-04-18] MEDS: KETOROLAC TROMETHAMINE INJ/PF 30 MG/1 ML SDV IV PRN ×3 (04:48→18:50)
[2018-04-18 05:14] LABS: PHOSPHORUS 4.3 mg/dL (2.5-4.5)
[2018-04-18] MEDS: CLONIDINE HCL 0.1 MG TABLET PO SCH ×3 (06:48→21:12)
[2018-04-18] MEDS: HEPARIN SOD (PORCINE) 5,000 UNIT/ML 1 ML SYRINGE SUBCUT SCH ×3 (06:49→21:12)
[2018-04-18 08:22] LABS: ABSOLUTE LYMPHOCYTES (AUTO) 2.6 10^3/uL (0.5-4.7); ABSOLUTE MONOCYTES (AUTO) 0.6 10^3/uL (0.1-1.4); ABSOLUTE NEUT (AUTO) 7.2 10^3/uL (1.7-8.2); BASOPHILS % (AUTO) 0.3 % (0-2); EOSINOPHILS % (AUTO) 0.5 % (0-6); HEMATOCRIT 37.1 % (36.0-47.0); HEMOGLOBIN 12.4 g/dL (12.0-15.5); LYMPHOCYTES % (AUTO) 24.6 % (13-45); MEAN CORPUSCULAR HEMOGLOBIN 30.7 pg (27.0-33.4); MEAN CORPUSCULAR HGB CONC 33.4 g/dL (32.0-36.0); MEAN CORPUSCULAR VOLUME 92 fl (80-97); MONOCYTES % (AUTO) 6.2 % (3-13); PLATELET COUNT 326 10^3/uL (150-450); RED BLOOD COUNT 4.03 10^6/uL (3.72-5.28); RED CELL DISTRIBUTION WIDTH 13.2 % (11.5-14.0); SEGMENTED NEUTROPHILS % (AUTO) 68.4 % (42-78); TOTAL CELLS COUNTED % (AUTO) 100 %; WHITE BLOOD COUNT 10.5 10^3/uL (4.0-10.5)
[2018-04-18] MEDS: DOCUSATE SODIUM 100 MG CAPSULE PO SCH ×2 (09:30→17:22)
--- NOTE | 2018-04-18 14:04 | PDOC PROGRESS REPORT ---
Subjective Progress Note for:: 04/18/18 Subjective:: less pains at operative site Reason For Visit: CELLULITIS, SEPSIS Physical Exam Vital Signs: Temp Pulse Resp BP Pulse Ox 97.9 F 65 18 112/72 100 04/18/18 12:00 04/18/18 12:00 04/18/18 12:00 04/18/18 12:00 04/18/18 12:00 Intake & Output 04/17/18 04/18/18 04/19/18 06:59 06:59 06:59 Intake Total 3061 8673 Output Total 6539 6008 Balance 2948 3054 Exam: wound vac in place Results Laboratory Results: 04/18/18 08:10 04/17/18 08:34 04/18/18 04/18/18 04:33 08:10 WBC 10.5 RBC 4.03 Hgb 12.4 Hct 37.1 MCV 92 MCH 30.7 MCHC 33.4 RDW 13.2 Plt Count 326 Seg Neutrophils % 68.4 Lymphocytes % 24.6 Monocytes % 6.2 Eosinophils % 0.5 Basophils % 0.3 Absolute Neutrophils 7.2 Absolute Lymphocytes 2.6 Absolute Monocytes 0.6 Absolute Eosinophils 0.0 Absolute Basophils 0.0 Phosphorus 4.3 Magnesium 2.1 04/15/18 12:40 Abdomen - Cellulitis Gram Stain - Final Assessment & Plan - Time Time Spent with patient: 15-24 minutes - Plan Summary Plan Summary: Keep wound vac next 48 hrs.Possible secondary closure of wound in the OR Monday.
--- NOTE | 2018-04-18 17:07 | PDOC PROGRESS REPORT ---
Subjective Progress Note for:: 04/18/18 Subjective:: 57 y.o. F presented to [facility] with R groin abscess. Initially I&D in ER and admitted on IV antibiotics but site continued to drain pus. Surgery took patient to OR today for I&D and washout of the affected area. Wound vac in place over surgical site, minimal drainage. Patient seen this morning on rounds she is resting comfortably in her bedside recliner. she is A&O x 3 and able to answer questions without pause. She denies any complaints but endorses TTP to the surgical site. Patient remains afebrile and nontoxic appearing. Reason For Visit: CELLULITIS, SEPSIS Physical Exam Vital Signs: Temp Pulse Resp BP Pulse Ox 97.5 F 72 12 107/60 99 04/18/18 15:42 04/18/18 15:42 04/18/18 15:42 04/18/18 15:42 04/18/18 15:42 Intake & Output 04/17/18 04/18/18 04/19/18 06:59 06:59 06:59 Intake Total 3064 8678 490 Output Total 2000 6010 200 Balance 1064 2668 290 General appearance: PRESENT: no acute distress, well-developed, well-nourished Head exam: PRESENT: atraumatic, normocephalic Eye exam: PRESENT: conjunctiva pink, EOMI, PERRLA. ABSENT: scleral icterus Ear exam: PRESENT: normal external ear exam Mouth exam: PRESENT: moist, tongue midline Neck exam: ABSENT: carotid bruit, JVD, lymphadenopathy, thyromegaly Respiratory exam: PRESENT: clear to auscultation ruddy. ABSENT: rales, rhonchi, wheezes Cardiovascular exam: PRESENT: RRR. ABSENT: diastolic murmur, rubs, systolic murmur Pulses: PRESENT: normal dorsalis pedis pul Vascular exam: PRESENT: normal capillary refill GI/Abdominal exam: PRESENT: normal bowel sounds, soft. ABSENT: distended, guarding, mass, organolmegaly, rebound, tenderness Rectal exam: PRESENT: deferred Extremities exam: PRESENT: full ROM. ABSENT: calf tenderness, clubbing, pedal edema Musculoskeletal exam: PRESENT: ambulatory, full ROM Neurological exam: PRESENT: alert, awake, oriented to person, oriented to place , oriented to time, oriented to situation, CN II-XII grossly intact Psychiatric exam: PRESENT: appropriate affect, normal mood Skin exam: PRESENT: dry, erythema, warm, other - SURGICAL SITE COVERED WITH WOUND VAC DRESSING. SMALL AMOUNT OF SS DRAINAGE. TTP. NO EVIDENCE OF ERYTHEMA AURROUNDING SURGICAL SITE. ABSENT: intact, rash Results Laboratory Results: 04/18/18 08:10 04/17/18 08:34 04/18/18 04/18/18 04:33 08:10 WBC 10.5 RBC 4.03 Hgb 12.4 Hct 37.1 MCV 92 MCH 30.7 MCHC 33.4 RDW 13.2 Plt Count 326 Seg Neutrophils % 68.4 Lymphocytes % 24.6 Monocytes % 6.2 Eosinophils % 0.5 Basophils % 0.3 Absolute Neutrophils 7.2 Absolute Lymphocytes 2.6 Absolute Monocytes 0.6 Absolute Eosinophils 0.0 Absolute Basophils 0.0 Phosphorus 4.3 Magnesium 2.1 04/15/18 12:40 Abdomen - Cellulitis Gram Stain - Final Status: Imported from PACS Assessment & Plan - Diagnosis (1) Abdominal wall cellulitis Is this a current diagnosis for this admission?: Yes Plan: The patient presented with right lower abdominal cellulitis extending to the medial suprapubic area and right medial thigh. Incision and drainage was completed while in the emergency department. Leukocytosis on admission >18k, down to 7.1 this morning. A1c 5.4% Blood cultures no growth to date Unfortunately, wound culture was not obtained at time of I&D; did collect 04/15 and in OR today. 04/15 gram-positive cocci in clusters She is empirically placed on vancomycin and Rocephin secondary to history of MRSA abscesses and cellulitis. Pain is managed with as needed Tylenol and [place]. Surgery performed I&D and washout today. Wound vac in place, minimal output. Surgical site TTP but otherwise no postop complications. Plan to keep patient in hospital until Monday, when surgery will take patient down to OR for surgical site closure. (2) Hypertension Is this a current diagnosis for this admission?: Yes Plan: Continue home dose clonidine (3) Tobacco abuse Is this a current diagnosis for this admission?: Yes Plan: Smoking cessation is encouraged; nicotine replacement therapies are provided. - Time Time Spent with patient: 15-24 minutes Medications reviewed and adjusted accordingly: Yes Anticipated discharge: Home - Inpatient Certification Based on my medical assessment, after consideration of the patient's comorbidities, presenting symptoms, or acuity I expect that the services needed warrant INPATIENT care.: Yes I certify that my determination is in accordance with my understanding of Medicare's requirements for reasonable and necessary INPATIENT services [42 CFR 412.3e].: Yes Medical Necessity: Need for IV Antibiotics - Plan Summary Plan Summary: Keep inpatient until Monday. Continue IV antibiotics. Plan for OR on Monday for wound closure.
[2018-04-18] MEDS: CEFTRIAXONE SODIUM 1,000 MG in DEXTROSE 5%-WATER 50 ML IV SCH (17:21)
[2018-04-18] MEDS: NICOTINE 21 MG/24 HR PATCH.TD24 TD SCH (20:49)
[2018-04-19] MEDS: KETOROLAC TROMETHAMINE INJ/PF 30 MG/1 ML SDV IV PRN ×3 (01:18→16:50)
[2018-04-19] MEDS: VANCOMYCIN HCL 1,000 MG in DEXTROSE 5%-WATER 250 ML IV SCH ×2 (01:19→09:43)
[2018-04-19] MEDS: HEPARIN SOD (PORCINE) 5,000 UNIT/ML 1 ML SYRINGE SUBCUT SCH ×3 (06:21→21:22)
[2018-04-19] MEDS: CLONIDINE HCL 0.1 MG TABLET PO SCH ×3 (06:24→21:21)
[2018-04-19] MEDS: NICOTINE 21 MG/24 HR PATCH.TD24 TD SCH (09:43)
[2018-04-19] MEDS: DOCUSATE SODIUM 100 MG CAPSULE PO SCH ×2 (09:43→16:53)
[2018-04-19] MEDS: MORPHINE SULFATE 10 MG/ML INJ IV PRN ×3 (10:11→21:21)
--- NOTE | 2018-04-19 17:13 | PDOC PROGRESS REPORT ---
Subjective Progress Note for:: 04/19/18 Subjective:: 57 y.o. F presented to [facility] with R groin abscess. Initially I&D in ER and admitted on IV antibiotics but site continued to drain pus. Surgery took patient to OR today for I&D and washout of the affected area. Wound vac in place over surgical site, minimal drainage. Patient seen this morning on rounds she is resting comfortably in her bedside recliner. She is A&O x 3 and able to answer questions without pause. She denies any complaints but endorses TTP to the surgical site. Patient remains afebrile and nontoxic appearing. Initial wound culture from ED is positive for MRSA. Patient placed on contact isolation. Reason For Visit: CELLULITIS, SEPSIS Physical Exam Vital Signs: Temp Pulse Resp BP Pulse Ox 98.1 F 66 18 140/86 H 100 04/19/18 16:00 04/19/18 16:00 04/19/18 16:00 04/19/18 16:00 04/19/18 16:00 Intake & Output 04/18/18 04/19/18 04/20/18 06:59 06:59 06:59 Intake Total 8678 2306 Output Total 6010 1875 Balance 2668 431 Weight 98.3 kg General appearance: PRESENT: no acute distress, morbidly obese Head exam: PRESENT: atraumatic, normocephalic Eye exam: PRESENT: conjunctiva pink, EOMI, PERRLA. ABSENT: scleral icterus Ear exam: PRESENT: normal external ear exam Mouth exam: PRESENT: moist, tongue midline Neck exam: ABSENT: carotid bruit, JVD, lymphadenopathy, thyromegaly Respiratory exam: PRESENT: clear to auscultation ruddy. ABSENT: rales, rhonchi, wheezes Cardiovascular exam: PRESENT: RRR. ABSENT: diastolic murmur, rubs, systolic murmur Pulses: PRESENT: normal radial pulses, normal dorsalis pedis pul Vascular exam: PRESENT: normal capillary refill GI/Abdominal exam: PRESENT: normal bowel sounds, soft. ABSENT: distended, guarding, mass, organolmegaly, rebound, tenderness Rectal exam: PRESENT: deferred Extremities exam: PRESENT: full ROM. ABSENT: calf tenderness, clubbing, pedal edema Neurological exam: PRESENT: alert, awake, oriented to person, oriented to place , oriented to time, oriented to situation Psychiatric exam: PRESENT: appropriate affect. ABSENT: normal mood Skin exam: PRESENT: dry, intact, warm, other - SURGICAL SITE COVERED WITH WOUND VAC. MINIMAL SS DRAINAGE. SURROUNDING AREA TTP. SKIN IS PINK/WARM/DRY. ABSENT: cyanosis, rash Results Laboratory Results: 04/18/18 08:10 04/17/18 08:34 04/15/18 12:40 Abdomen - Cellulitis Gram Stain - Final 04/15/18 12:40 Abdomen - Cellulitis Wound Culture - Final Mrsa (Meth Resis Staph Aureus) Skin Tereza Status: Imported from PACS Assessment & Plan - Diagnosis (1) Abdominal wall cellulitis Is this a current diagnosis for this admission?: Yes Plan: The patient presented with right lower abdominal cellulitis extending to the medial suprapubic area and right medial thigh. Incision and drainage was completed while in the emergency department. Leukocytosis on admission >18k, down to 10 this morning. A1c 5.4% Blood cultures no growth to date 04/15 Initial wound culture positive for MRSA, and antibiotics tailored to cultures and sensitivities Repeat wound culture pending Vancomycin EDWIN is 2, not ideal for treatment (per pharmacist). Switch antibiotic coverage to Bactrim with better sensitivity Pain is managed with as needed Tylenol and [place]. 04/17 Surgery performed I&D and washout of site. Wound vac in place, minimal output. Surgical site TTP but otherwise no postop complications. Plan to keep patient in hospital until Monday, when surgery will take patient down wound vac and close surgical site. (2) Hypertension Is this a current diagnosis for this admission?: Yes Plan: Continue home dose clonidine (3) Tobacco abuse Is this a current diagnosis for this admission?: Yes Plan: Smoking cessation is encouraged; nicotine replacement therapies are provided. - Time Time Spent with patient: 15-24 minutes Medications reviewed and adjusted accordingly: Yes Anticipated discharge: Home Within: within 48 hours - Inpatient Certification Based on my medical assessment, after consideration of the patient's comorbidities, presenting symptoms, or acuity I expect that the services needed warrant INPATIENT care.: Yes I certify that my determination is in accordance with my understanding of Medicare's requirements for reasonable and necessary INPATIENT services [42 CFR 412.3e].: Yes Medical Necessity: Risk of Complication if Not Cared For in Hospital - Plan Summary Plan Summary: Continue antibiotic coverage for MRSA. Surgery to takedown wound VAC tomorrow and close surgical site. Plan for discharge home tomorrow.
[2018-04-19] MEDS ORDERED: DEXTROSE 40% GEL 15 GM TUBE PO PRN ×2 (18:28)
[2018-04-19] MEDS ORDERED: DEXTROSE 50%-WATER 25 GM/50 ML DISP.SYRIN IV PRN ×2 (18:28)
[2018-04-19] MEDS ORDERED: GLUCAGON,HUMAN RECOMB 1 MG INJ SUBCUT PRN (18:28)
--- NOTE | 2018-04-19 18:28 | PDOC PROGRESS REPORT ---
Subjective Progress Note for:: 04/19/18 Reason For Visit: CELLULITIS, SEPSIS Physical Exam Vital Signs: Temp Pulse Resp BP Pulse Ox 98.1 F 66 18 140/86 H 100 04/19/18 16:00 04/19/18 16:00 04/19/18 16:00 04/19/18 16:00 04/19/18 16:00 Intake & Output 04/18/18 04/19/18 04/20/18 06:59 06:59 06:59 Intake Total 8678 2306 Output Total 6010 1875 Balance 2668 431 Weight 98.3 kg Results Laboratory Results: 04/18/18 08:10 04/17/18 08:34 04/15/18 12:40 Abdomen - Cellulitis Gram Stain - Final 04/15/18 12:40 Abdomen - Cellulitis Wound Culture - Final Mrsa (Meth Resis Staph Aureus) Skin Tereza Assessment & Plan - Diagnosis (1) Abscess of right groin Is this a current diagnosis for this admission?: Yes - Plan Summary Plan Summary: This is a 57-year-old female status post incision and drainage of a right groin abscess with wound VAC placement. Patient is doing well. She has no complaints today. Plan for VAC removal and partial wound closure tomorrow in the OR by Dr. Sanchez. N.p.o. after midnight. I have encouraged the patient to ambulate and use her incentive spirometer.
[2018-04-19] MEDS: SULFAMETHOXAZOLE/TRIMETHOPRIM 800-160 MG TABLET PO SCH (21:21)
[2018-04-20] MEDS: KETOROLAC TROMETHAMINE INJ/PF 30 MG/1 ML SDV IV PRN ×2 (03:20→16:31)
[2018-04-20] MEDS: HEPARIN SOD (PORCINE) 5,000 UNIT/ML 1 ML SYRINGE SUBCUT SCH ×3 (06:10→22:06)
[2018-04-20] MEDS: CLONIDINE HCL 0.1 MG TABLET PO SCH ×3 (06:10→22:10)
[2018-04-20] MEDS: MORPHINE SULFATE 10 MG/ML INJ IV PRN ×3 (07:40→20:14)
[2018-04-20] MEDS: DOCUSATE SODIUM 100 MG CAPSULE PO SCH ×2 (10:08→16:57)
[2018-04-20] MEDS: SULFAMETHOXAZOLE/TRIMETHOPRIM 800-160 MG TABLET PO SCH ×2 (11:06→22:10)
[2018-04-20] MEDS: NICOTINE 21 MG/24 HR PATCH.TD24 TD SCH (11:06)
--- NOTE | 2018-04-20 20:37 | PDOC PROGRESS REPORT ---
Subjective Progress Note for:: 04/20/18 Subjective:: 57 y.o. F presented to [facility] with R groin abscess. Initially I&D in ER and admitted on IV antibiotics but site continued to drain pus. Surgery took patient to OR today for I&D and washout of the affected area. Wound vac in place over surgical site, minimal drainage. Patient seen this morning on rounds she is resting comfortably in her bedside recliner. She is A&O x 3 and able to answer questions without pause. She denies any complaints but endorses TTP to the surgical site. Patient remains afebrile and nontoxic appearing. Patient was supposed to get wound vac removed and surgical site closed today. Unfortunately, her procedure was rescheduled due to multiple emergency surgeries taking place today. Reason For Visit: CELLULITIS, SEPSIS Physical Exam Vital Signs: Temp Pulse Resp BP Pulse Ox 98.3 F 63 16 120/71 99 04/20/18 19:21 04/20/18 19:21 04/20/18 19:21 04/20/18 19:21 04/20/18 19:21 Intake & Output 04/19/18 04/20/18 04/21/18 06:59 06:59 06:59 Intake Total 2306 3198 962 Output Total 1875 2750 2700 Balance 431 448 -9448 Weight 98.3 kg 98.2 kg General appearance: PRESENT: no acute distress, morbidly obese Head exam: PRESENT: atraumatic, normocephalic Eye exam: PRESENT: conjunctiva pink, EOMI, PERRLA. ABSENT: scleral icterus Ear exam: PRESENT: normal external ear exam Mouth exam: PRESENT: moist, tongue midline Neck exam: ABSENT: carotid bruit, JVD, lymphadenopathy, thyromegaly Respiratory exam: PRESENT: clear to auscultation ruddy. ABSENT: rales, rhonchi, wheezes Cardiovascular exam: PRESENT: RRR. ABSENT: diastolic murmur, rubs, systolic murmur Pulses: PRESENT: normal dorsalis pedis pul Vascular exam: PRESENT: normal capillary refill GI/Abdominal exam: PRESENT: normal bowel sounds, soft. ABSENT: distended, guarding, mass, organolmegaly, rebound, tenderness Rectal exam: PRESENT: deferred Extremities exam: PRESENT: full ROM. ABSENT: calf tenderness, clubbing, pedal edema Neurological exam: PRESENT: alert, awake, oriented to person, oriented to place , oriented to time, oriented to situation Psychiatric exam: PRESENT: appropriate affect, normal mood. ABSENT: homicidal ideation, suicidal ideation Skin exam: PRESENT: dry, intact, warm, other - SURGICAL SITE C/D/I. NO SURROUNDING ERYTHEMA. SS DRAINAGE IN WOUND VAC CONTAINER. ABSENT: cyanosis, rash Results Laboratory Results: 04/18/18 08:10 04/17/18 08:34 04/17/18 07:56 Abdomen - Not Specified Gram Stain - Final 04/17/18 07:56 Abdomen - Not Specified Wound Culture - Final No Aerobic Organisms Propionibacterium Species Peptostreptococcus Species 04/14/18 21:40 Blood Blood Culture - Final NO GROWTH IN 5 DAYS 04/14/18 20:38 Blood Blood Culture - Final NO GROWTH IN 5 DAYS Status: Imported from PACS Assessment & Plan - Diagnosis (1) Abdominal wall cellulitis Is this a current diagnosis for this admission?: Yes Plan: The patient presented with right lower abdominal cellulitis extending to the medial suprapubic area and right medial thigh. Incision and drainage was completed while in the emergency department. Leukocytosis on admission >18k, down to 10 this morning. A1c 5.4% Blood cultures no growth to date 04/15 Initial wound culture positive for MRSA, and antibiotics tailored to cultures and sensitivities Repeat wound culture pending Vancomycin EDWIN is 2, not ideal for treatment (per pharmacist). Switch antibiotic coverage to Bactrim with better sensitivity Pain is managed with as needed Tylenol and [place]. 04/17 Surgery performed I&D and washout of site. Wound vac in place, minimal output. Surgical site TTP but otherwise no postop complications. Plan to keep patient in hospital until tomorrow, when surgery will take patient down wound vac and close surgical site. (2) Hypertension Is this a current diagnosis for this admission?: Yes Plan: Continue home dose clonidine (3) Tobacco abuse Is this a current diagnosis for this admission?: Yes Plan: Smoking cessation is encouraged; nicotine replacement therapies are provided. - Time Time Spent with patient: 15-24 minutes Medications reviewed and adjusted accordingly: Yes Anticipated discharge: Home - Inpatient Certification Based on my medical assessment, after consideration of the patient's comorbidities, presenting symptoms, or acuity I expect that the services needed warrant INPATIENT care.: Yes I certify that my determination is in accordance with my understanding of Medicare's requirements for reasonable and necessary INPATIENT services [42 CFR 412.3e].: Yes Medical Necessity: Risk of Complication if Not Cared For in Hospital - Plan Summary Plan Summary: Continue antibiotics. Plan for OR tomorrow. Discharge home after wound closure.
--- NOTE | 2018-04-20 22:18 | PDOC PROGRESS REPORT ---
Subjective Progress Note for:: 04/20/18 Subjective:: no pains Reason For Visit: CELLULITIS, SEPSIS Physical Exam Vital Signs: Temp Pulse Resp BP Pulse Ox 98.3 F 63 16 120/71 99 04/20/18 19:21 04/20/18 19:21 04/20/18 19:21 04/20/18 19:21 04/20/18 19:21 Intake & Output 04/19/18 04/20/18 04/21/18 06:59 06:59 06:59 Intake Total 2306 3198 962 Output Total 1875 2750 2700 Balance 431 302 -0062 Weight 98.3 kg 98.2 kg Exam: Vac in place Results Laboratory Results: 04/18/18 08:10 04/17/18 08:34 04/17/18 07:56 Abdomen - Not Specified Gram Stain - Final 04/17/18 07:56 Abdomen - Not Specified Wound Culture - Final No Aerobic Organisms Propionibacterium Species Peptostreptococcus Species 04/14/18 21:40 Blood Blood Culture - Final NO GROWTH IN 5 DAYS 04/14/18 20:38 Blood Blood Culture - Final NO GROWTH IN 5 DAYS Assessment & Plan - Time Time Spent with patient: 15-24 minutes - Plan Summary Plan Summary: For removal of VAC in the OR tomorrow with secondary closure of right groin I&D site.
[2018-04-21] MEDS: MORPHINE SULFATE 10 MG/ML INJ IV PRN (02:19)
[2018-04-21] MEDS: HEPARIN SOD (PORCINE) 5,000 UNIT/ML 1 ML SYRINGE SUBCUT SCH ×2 (06:32→14:12)
[2018-04-21] MEDS: CLONIDINE HCL 0.1 MG TABLET PO SCH ×2 (06:32→14:12)
[2018-04-21] MEDS ORDERED: FENTANYL CITRATE INJ/PF 100 MCG/2 ML AMPUL ONE (07:25)
[2018-04-21] MEDS ORDERED: MIDAZOLAM 2 MG/2 ML INJ ONE (07:25)
[2018-04-21] MEDS ORDERED: PROPOFOL INJ 200 MG/20 ML VIAL IV ONE (07:25)
[2018-04-21] MEDS ORDERED: MORPHINE SULFATE 10 MG/ML INJ ONE ×2 (07:26→09:07)
[2018-04-21] MEDS ORDERED: MEPERIDINE HCL/PF INJ 25 MG/1 ML DISP.SYRIN IV PRN (07:58)
[2018-04-21] MEDS ORDERED: DIPHENHYDRAMINE HCL 50 MG/ML VIAL IV PRN (07:58)
[2018-04-21] MEDS ORDERED: PROMETHAZINE HCL INJ 25 MG/1 ML VIAL IV PRN (07:58)
[2018-04-21] MEDS ORDERED: MORPHINE SULFATE 10 MG/ML INJ IV PRN (07:58)
[2018-04-21] MEDS ORDERED: FENTANYL CITRATE INJ/PF 100 MCG/2 ML AMPUL IV PRN ×3 (07:58)
[2018-04-21] MEDS: DOCUSATE SODIUM 100 MG CAPSULE PO SCH (09:11)
[2018-04-21] MEDS ORDERED: NORMAL SALINE 1000 ML 1,000 ML IV PRN (09:24)
[2018-04-21] MEDS: SULFAMETHOXAZOLE/TRIMETHOPRIM 800-160 MG TABLET PO SCH (09:41)
[2018-04-21] MEDS: NICOTINE 21 MG/24 HR PATCH.TD24 TD SCH (09:41)
--- NOTE | 2018-04-21 10:30 | OPERATIVE REPORT E ---
Operative Report NAME: CARLOS VIDAL : 1960 AGE: 57Y DATE OF SURGERY: 04/21/2018 ROOM: 424 PREOPERATIVE DIAGNOSIS: Post I and D of the right groin abscess with wound VAC placement. POSTOPERATIVE DIAGNOSIS: Post I and D of the right groin abscess with wound VAC placement. PROCEDURE: Secondary closure of right groin wound. SURGEON: SUE SAUNDERS M.D. ANESTHESIA: Sedation. INDICATIONS: This is a 57-year-old female who had a right groin abscess site drained and a wound VAC placed about 3 days ago. The wound VAC was removed in the OR and the wound appears to be closed secondarily. DESCRIPTION OF PROCEDURE: After adequate IV sedation the wound VAC was removed and the groin area appears ready for secondary closure. It was then prepped and draped in the usual sterile fashion. A couple areas of bleeding were then controlled with cautery. Next, the wound was then closed with deep sutures using 2-0 nylon in a simple fashion. About 10 sutures were placed to close the wound which roughly measured about 10 cm long. Sterile dressings were then placed over the operative site with a 4 x 4 and a transparent adhesive. The patient tolerated the procedure well. Estimated blood loss was about 5 mL. Patient was then brought to the recovery room in satisfactory condition. DICTATING PHYSICIAN: SUE SAUNDERS M.D. [id number] PHY#: [id number] ID: [id number] JOB#: [id number] ACCT: [id number] cc:SUE SAUNDERS M.D. >
[2018-04-21] MEDS: HYDROCODONE/ACETAMINOPHEN 5-325 MG TABLET PO PRN ×2 (10:53→14:18)
[2018-04-21 12:13] VITALS: BP 102/59
[2018-04-21] MEDS ORDERED: HYDROCODONE/ACETAMINOPHEN 5-325 MG TABLET PO ONE (14:09)
[2018-04-21] MEDS ORDERED: KETOROLAC TROMETHAMINE INJ/PF 30 MG/1 ML SDV IV ONE (14:10)
--- NOTE | 2018-04-27 07:37 | PDOC DISCHARGE SUMMARY ---
General - Admit/Disc Date/PCP Admission Date/Primary Care Provider: 04/14/18 20:09 MERRY GORDON MD Discharge Date: 04/21/18 - Discharge Diagnosis (1) Abdominal wall cellulitis Is this a current diagnosis for this admission?: Yes (2) Hypertension Is this a current diagnosis for this admission?: Yes (3) Tobacco abuse Is this a current diagnosis for this admission?: Yes - Additional Information Resuscitation Status: Full Code Discharge Diet: As Tolerated Discharge Activity: Activity As Tolerated Prescriptions: Ibuprofen [Motrin 800 mg Tablet] 800 mg PO Q8H PRN #30 tab PRN Reason: Sulfamethoxazole/Trimethoprim [Septra-Ds 800-160 mg Tablet] 2 tab PO Q12 #20 tablet Home Medications: Clonidine HCl [Catapres 0.1 mg Tablet] 0.1 mg PO Q8 04/15/18 Meloxicam [Mobic] 7.5 mg PO Q12 04/15/18 Sulfamethoxazole/Trimethoprim [Septra-Ds 800-160 mg Tablet] 2 tab PO Q12 #20 tablet 04/20/18 Ibuprofen [Motrin 800 mg Tablet] 800 mg PO Q8H PRN #30 tab 04/21/18 History of Present Illness History of Present Illness: Per Dr. Blank: CARLOS VIDAL is a 57 year old female with a past medical history of hypertension, obesity, tobacco and MRSA cellulitis. Presenting with 24 hours of erythema, induration and pain over her right lower abdomen and pannus extending to the right thigh. She admits fever of 103.0, chills denies nausea and vomiting. In the emergency room she is found to have cellulitis of the pannus and a 0.5 cm abscess involving a hair follicle requiring I&D. She denies recent antibiotic use and otherwise feels well. Hospital Course Hospital Course: The patient presented with right lower abdominal cellulitis extending to the medial suprapubic area and right medial thigh. Incision and drainage was completed while in the emergency department. She was admitted for IV antibiotics. Leukocytosis on admission >18k. While inpatient, the wound continued to drain serosanguenous fluid. Surgery was consulted, they recommended repeat I&D and washout. 04/15 Initial wound culture positive for MRSA , antibiotics tailored to cultures and sensitivities. Vancomycin EDWIN is 2, not ideal for treatment (per pharmacist). Switched antibiotic coverage to Bactrim with better sensitivity. 04/17 Surgery performed I&D and washout of site. Wound vac in place, minimal output. Surgical site TTP but otherwise no postop complications. Hospital stay was uneventful - no febrile episodes, vital signs remained stable, and leukocytosis resolved. On the day of discharge, surgery took patient to OR for wound vac take down and closure of surgical site. The patient was given instructions to continue taking PO bactrim and follow up with surgeon in outpatient clinic. The patient stated understanding. Physical Exam Vital Signs: Temp Pulse Resp BP Pulse Ox 98.0 F 66 18 102/59 L 100 04/21/18 12:10 04/21/18 12:10 04/21/18 12:10 04/21/18 12:10 04/21/18 12:10 Results Laboratory Results: 04/18/18 08:10 04/17/18 08:34 Status: Imported from PACS Qualifiers - * PATIENT BEING DISCHARGED WITH ANY OF THE FOLLOWING DIAGNOSIS: No Plan Discharge Plan: DISCHARGE ON PO ANTIBIOTICS. FOLLOW UP WITH SURGERY IN OUTPATIENT CLINIC IN 1-2 WEEKS Time Spent: Less than 30 Minutes
== END 2018-04-21 15:52 | disposition home or self-care (01) | DRG 854 ==
LOC: ER 17:17 → EH 20:09 → 4S 22:00
PROVIDERS: ADMIT Internal Medicine; ATTEND Internal Medicine
PROC: 0J9800Z Drainage of Abdomen Subcutaneous Tissue and Fascia with Drainage Device, Open Approach (ICD-10-PCS; 2018-04-17)
PROC: 0JD80ZZ Extraction of Abdomen Subcutaneous Tissue and Fascia, Open Approach (ICD-10-PCS; principal; 2018-04-17 07:30)
PROC: 0JQ80ZZ Repair Abdomen Subcutaneous Tissue and Fascia, Open Approach (ICD-10-PCS; 2018-04-21)
DX: A41.9 Sepsis, unspecified organism (principal); L03.311 Cellulitis of abdominal wall; L03.115 Cellulitis of right lower limb; I10 Essential (primary) hypertension; F17.200 Nicotine dependence, unspecified, uncomplicated; E66.9 Obesity, unspecified; B95.62 Methicillin resistant Staphylococcus aureus infection as the cause of diseases classified elsewhere; Z68.37 Body mass index [BMI] 37.0-37.9, adult; Z90.710 Acquired absence of both cervix and uterus; Z82.49 Family history of ischemic heart disease and other diseases of the circulatory system
CPT/HCPCS: 36415; 400; 80048; 80053; 80202; 82150; 83036; 83690; 83735; 84100; 85025; 85610; 87040; 87070; 87075; 87077; 87186; 87205; 99284; J0131; J0696; J1100; J1644; J1885; J2250; J2270; J2704; J3010; J3370; J3490; J7030; J7060

== ENCOUNTER 2018-12-06 09:39 | Emergency (ER) | payer SELFPAY ==
--- NOTE | 2018-12-06 10:13 | ER Document Report ---
ED Medical Screen (RME) - General Chief Complaint: Abscess Stated Complaint: POSSIBLE TOOTH ABSCESS Time Seen by Provider: 12/06/18 10:12 Primary Care Provider: MERRY GORDON MD [Primary Care Provider] - Follow up as needed Notes: 58 years old female with a history of dental caries presents today with left lower jaw and cheek swelling overnight. Painful. No fever chills or other constitutional symptoms. TRAVEL OUTSIDE OF THE [place] IN LAST 30 DAYS: No - Related Data Allergies/Adverse Reactions: No Known Allergies Allergy (Verified 12/06/18 09:40) Past Medical History - Past Medical History Cardiac Medical History: Reports: Hx Hypertension Renal/ Medical History: Denies: Hx Peritoneal Dialysis Past Surgical History: Reports: Hx Hysterectomy Physical Exam - Vital signs Vitals: Temp Pulse Resp BP Pulse Ox 99.1 F 96 18 137/79 H 98 12/06/18 09:49 12/06/18 09:49 12/06/18 09:49 12/06/18 09:49 12/06/18 09:49 Course - Vital Signs Vital signs: Temp Pulse Resp BP Pulse Ox 99.1 F 96 18 137/79 H 98 12/06/18 09:49 12/06/18 09:49 12/06/18 09:49 12/06/18 09:49 12/06/18 09:49 Doctor's Discharge - Discharge Referrals: MERRY GORDON MD [Primary Care Provider] - Follow up as needed
[2018-12-06] MEDS ORDERED: LIDOCAINE 2% VISCOUS SOLN 20 ML UDCUP PO ONE (10:40)
--- NOTE | 2018-12-06 10:56 | ER Document Report ---
ED General - General Chief Complaint: Abscess Stated Complaint: POSSIBLE TOOTH ABSCESS Time Seen by Provider: 12/06/18 10:12 Primary Care Provider: MERRY GORDON MD [ACTIVE STAFF] - Follow up as needed RAFIA MEZA MD [ACTIVE STAFF] - 12/06/18 JADON TARIQ DDS [ACTIVE STAFF] - Follow up as needed TRAVEL OUTSIDE OF THE [place] IN LAST 30 DAYS: No - HPI Notes: Patient is a 58-year-old female no significant past medical history presents the emergency department complaining of left lower dental pain to #21 approximately with associated left lower jaw swelling over the last day. Denies drug allergies IV drug abuse. No history of MRSA. She still able to eat and drink without any difficulties otherwise. She is able to swallow and is not drooling. She is urinating normally. No other concerns or complaints. Denies any headache, fever, head injury, neck pain, hoarseness, URI, sore throat, chest pain, palpitations, syncope, cough, shortness of breath, wheeze, dyspnea, abdominal pain, nausea/vomiting/diarrhea, urinary retention, dysuria, hematuria, or rash. - Related Data Allergies/Adverse Reactions: No Known Allergies Allergy (Verified 12/06/18 09:40) Past Medical History - Social History Smoking Status: Current Every Day Smoker Chew tobacco use (# tins/day): No Frequency of alcohol use: None Drug Abuse: None Family History: Hypertension Patient has suicidal ideation: No Patient has homicidal ideation: No - Past Medical History Cardiac Medical History: Reports: Hx Hypertension Renal/ Medical History: Denies: Hx Peritoneal Dialysis Past Surgical History: Reports: Hx Hysterectomy Review of Systems - Review of Systems -: Yes All other systems reviewed and negative Physical Exam - Vital signs Vitals: Temp Pulse Resp BP Pulse Ox 99.1 F 96 18 137/79 H 98 12/06/18 09:49 12/06/18 09:49 12/06/18 09:49 12/06/18 09:49 12/06/18 09:49 - Notes Notes: PHYSICAL EXAMINATION: GENERAL: Well-appearing, well-nourished and in no acute distress. A&Ox4. Answers questions appropriately. HEAD: Atraumatic, normocephalic. EYES: Pupils equal round and reactive to light, extraocular movements intact, sclera anicteric, conjunctiva are normal. ENT: Nares patent and without discharge. oropharynx clear without exudates. No tonsilar hypertrophy or erythema. Moist mucous membranes. No sinus tenderness. Uvula midline. No palatine shift. No tongue protrusion. No respiratory compromise. Mouth: Poor dentition. + severe decay and mild gingivitis. No obvious discharge noted. + Lt lower jaw/facial swelling. + tenderness to tooth #21. NECK: Normal range of motion, supple without lymphadenopathy. No rigidity/meningismus. LUNGS: Breath sounds clear to auscultation bilaterally and equal. No wheezes rales or rhonchi. HEART: Regular rate and rhythm without murmurs, rubs, gallops. NEUROLOGICAL: Cranial nerves grossly intact. Normal speech, normal gait. Normal sensory, motor exams PSYCH: Normal mood, normal affect. SKIN: Warm, Dry, normal turgor, no rashes or lesions noted. Course - Re-evaluation Re-evalutation: 12/06/18 10:53 Patient is an afebrile, well-hydrated, 58-year-old female who presents to the ED with dental pain, suspect nerve root etiology versus infection. Vitals are acceptable. PE is otherwise unremarkable. No I&D, labs, or imaging warranted at this time based on H&P. Viscous lidocaine dispensed today. I will send her home with a prescription for cleocin. Low suspicion for any meningitis, sepsis, peritonsillar/pharyngeal abscess, respiratory compromise, Darnell's, temporal arteritis, or other emergent systemic condition at this time. Patient is aware this condition can change from initial presentation and she needs to monitor symptoms closely. Conservative measures otherwise for symptoms. Call to schedule an appointment with a dentist for further evaluation and management. Recheck with your PCM this week as well. Return to the ED with any worsening/concerning symptoms otherwise as reviewed in discharge. Patient is in agreement. Reviewed with Dr. Nunez who is in agreement with plan/dispo. - Vital Signs Vital signs: Temp Pulse Resp BP Pulse Ox 99.1 F 96 18 137/79 H 98 12/06/18 09:49 12/06/18 09:49 12/06/18 09:49 12/06/18 09:49 12/06/18 09:49 Discharge - Discharge Clinical Impression: Pain, dental Condition: Stable Disposition: HOME, SELF-CARE Instructions: Clindamycin ([facility]), Toothache ([facility]) Additional Instructions: [place] and floss twice daily Maintain fluid intake Take antibiotics as directed Mouthwash, salt water gargles, peroxide rinse as needed Tylenol/ibuprofen as needed Recheck with PCM this week Call today/tomorrow and schedule an appointment with your dentist for further evaluation Return to the ED with any worsening symptoms and/or development of fever, headache, facial swelling, swelling of lips/tongue/throat, trouble swallowing, drooling, hoarseness, neck pain/stiffness, chest pain, palpitations, syncope, s hortness of breath, trouble breathing, abdominal pain, n/v/d, numbness/tingling, or other worsening symptoms that are concerning to you. Prescriptions: Clindamycin HCl [Cleocin 300 mg Capsule] 300 mg PO TID #30 capsule Forms: Elevated Blood Pressure, Smoking Cessation Education Referrals: MERRY GORDON MD [ACTIVE STAFF] - Follow up as needed JADON TARIQ DDS [ACTIVE STAFF] - Follow up as needed RAFIA MEZA MD [ACTIVE STAFF] - 12/06/18
[2018-12-06 12:04] VITALS: BP 130/78
== END 2018-12-06 11:25 | disposition home or self-care (01) ==
LOC: ER 09:39
DX: K02.9 Dental caries, unspecified (principal); K05.10 Chronic gingivitis, plaque induced; K08.89 Other specified disorders of teeth and supporting structures; R22.0 Localized swelling, mass and lump, head; I10 Essential (primary) hypertension; F17.200 Nicotine dependence, unspecified, uncomplicated
CPT/HCPCS: 99282; J3490